=== PATIENT | female | born 1995 | race African-American/Black ===

== ENCOUNTER 2021-05-19 18:50 | Emergency (ER) | payer SELFPAY ==
--- NOTE | 2021-05-19 18:55 | ED.URI ---
HPI - URI/Sore Throat General Chief Complaint: Upper Respiratory Infection Stated Complaint: Cough/Sneezing/ Congestion Time Seen by Provider: 05/19/21 18:55 Source: patient and RN notes reviewed History of Present Illness HPI Narrative: Patient is a 25-year-old female who presents the urgent care with complaints of sneezing, nasal congestion, bilateral ear pain and loss of taste and smell. Patient states most of her symptoms have been going on for 3 days with the exception of taste and smell occurring last night. Patient has been Covid vaccinated and did have Covid last August. Denies of any fever or body aches. Denies of any recent exposures to Covid. No other acute complaints. No acute distress noted. Patient aware of the plan of care. Some parts of this dictation were generated by voice recognition software and may contain typographical and/or grammatical inaccuracies. Related Data Home Medications Medication Instructions Recorded Confirmed testosterone enanthate 50 mg SUBCUT WEEKLY 05/19/21 05/19/21 Allergies Allergy/AdvReac Type Severity Reaction Status Date / Time phenol [From Chloraseptic] Allergy Swelling Verified 05/19/21 19:12 of Lip/Tongue/Throat Review of Systems Review of Systems: CONSTITUTIONAL: Denies fever, chills, or sweats. EYES: Denies visual changes, redness, or discharge. ENT: Reports of nasal congestion, sinus pressure, bilateral otalgia CARDIOVASCULAR: Denies chest pain, palpitations, or edema. RESPIRATORY: Denies cough or dyspnea. GASTROINTESTINAL: Denies abdominal pain, nausea, vomiting, or diarrhea. GENITOURINARY: Denies dysuria or hematuria. SKIN: Denies rash or itching. MUSCULOSKELETAL: Denies back pain, joint pain, or myalgia. NEUROLOGIC: Denies headache, numbness, or weakness. All other systems reviewed are negative, except as documented in HPI. PMFSH Comments At the time of my signature, I reviewed and agree with the nursing past medical, surgical, social, and family history. There is no relevant family history pertinent to the patient complaint. Exam Narrative: GENERAL: This is a well-nourished, well-developed patient, in no apparent distress. HEAD: normocephalic, atraumatic. EYES: PERRL. Sclera clear/white. Vision is grossly intact. Mild injected conjunctiva EARS: External ears normal, auditory canals clear and without drainage, moderately erythemic injected left TM, right TM normal without perforation. Hearing grossly intact. NOSE: External nose normal with no obvious nasal discharge, mild bilateral erythemic nares with clear rhinorrhea. THROAT: Mucous membranes moist, moderate postnasal drainage with mild erythema noted to posterior oropharynx without exudate or ulceration NECK: Neck supple CARDIOVASCULAR: Regular rate and rhythm without murmurs, gallops, or rubs. RESPIRATORY: Clear to auscultation. Breath sounds equal bilaterally. No wheezes, rales, or rhonchi. SKIN: warm, intact with no suspicious lesions or rash, good texture and turgor. NEURO: awake, alert, and oriented to person, place and time. There were no obvious focal neurologic abnormalities. EXTREMITIES: No clubbing, cyanosis, or edema. Course Vital Signs Vital signs: Vital Signs Temperature 98.7 F 05/19/21 19:02 Pulse Rate 93 05/19/21 19:02 Respiratory Rate 14 05/19/21 19:02 Blood Pressure 141/77 H 05/19/21 19:02 Pulse Oximetry 100 05/19/21 19:02 Temperature 98.7 F 05/19/21 19:15 Pulse Rate 93 05/19/21 19:15 Respiratory Rate 14 05/19/21 19:15 Blood Pressure 141/77 H 05/19/21 19:15 Pulse Oximetry 100 05/19/21 19:15 Reviewed-patient is informed that they may have pre-hypertension or hypertension based on a blood pressure reading in the department. I recommend the patient call the primary care provider listed on their discharge instructions or a physician of their choice this week to arrange follow-up for further evaluation of possible pre-hypertension or hypertension.
[2021-05-19 19:02] VITALS: BP 141/77; PULSE 93; RESP 14; TEMP 37.1; O2SAT 100
[2021-05-19 19:15] VITALS: BP 141/77; PULSE 93; RESP 14; TEMP 37.1; O2SAT 100
== END 2021-05-19 19:30 | disposition home or self-care (01) ==
PROVIDERS: Emergency Provider Nurse Practitioner Family
DX: H66.92 Otitis media, unspecified, left ear (principal); J06.9 Acute upper respiratory infection, unspecified; Z20.822 Contact with and (suspected) exposure to COVID-19; J45.909 Unspecified asthma, uncomplicated; Z86.16 Personal history of COVID-19
CPT/HCPCS: 87426; 99213; C9803; G0463